=== PATIENT | female | born 1990 | race Caucasian/White ===

== ENCOUNTER 2018-11-27 17:45 | Outpatient (CLI) | payer OTHER ==
[~2018-11-27] VITALS: Ht 165.1 cm; Wt 75.9 kg
[~2018-11-27 17:45] MED LIST: FLEXERIL5 MG PO; NORCO 325 MG-51 TAB PO; VITAMINS & MIN480 M1
[2018-11-27 17:49] VITALS: BP 113/77; PULSE 66; TEMP 98
--- NOTE | 2018-11-27 17:57 | NUR ---
1757- [facility] placeed on patient at this time. Patient being seen today with c/o contractions. Patient in left wedge, semi-fowlers. 1801- 2 minute decelerations in heartrate at this time. Marlys Mccloud RN at bedside, patient turned to left lateral and then to right lateral. fht's normalized to 120's after position change. 1803- SVE- 2-3/80/-2. Patient states that she has been comtraction [id number] for the passed hour or so, rates pain a 3 out of 10.
[2018-11-27 18:15] VITALS: BP 113/77; PULSE 66; TEMP 98
[2018-11-28] MEDS ORDERED: PRENATAL MVI (07:39)
[2018-11-28] MEDS ORDERED: PROFERRIN ES12 MG PO (07:39)
== END 2018-11-27 19:22 | disposition home or self-care (01) ==
LOC: LDRO 17:45
DX: O62.9 Abnormality of forces of labor, unspecified (principal); Z3A.39 39 weeks gestation of pregnancy

== ENCOUNTER 2018-11-28 06:42 | Inpatient (IN) | payer OTHER ==
[2018-11-28] VITALS (30 sets, daily range): BP systolic 93–122; BP diastolic 53–77; PULSE 49–81; TEMP 97.5–98.4
[~2018-11-28] VITALS: Ht 165.1 cm; Wt 74.5 kg
--- NOTE | 2018-11-28 07:00 | NUR ---
Pt arrives on unit ambulatory. States contractions that have increased in pain. Denies vaginal bleeding and leaking of fluid. Reports GFM. EFM and toco applied. VSS. SVE per this RN . Pt requesting epidural. Dr. Post notified. See physician notification. Chau Ring CRNA requested to unit. Admission assessment completed. Consents signed. IV started in LH. Labs drawn. LR infusing. PT updated on POC. Safety reviewed. Bed locked in low position. Call light within reach. No questions or concerns at this time.
[2018-11-28 07:25] LABS: BASO % 0.5 % (0.0-2.0); EOS % 0.3 % (0-4.0); GRAN # 6.7 (1.4-6.5); HEMATOCRIT 40.5 % (37.0-47.0); HEMOGLOBIN 12.6 g/dl (12.5-16.0); LYMPH # 1.5 (1.2-3.4); LYMPH % 16.4 % (20.0-51.0); MEAN CELL VOLUME 102 fl (80.0-100.0); MEAN CORPUSCULAR HEMOGLOBIN 32 pg (27.0-31.0); MEAN CORPUSCULAR HGB CONC 31 g/dl (33.0-37.0); MEAN PLATELET VOLUME 10.4 fl (7.4-10.4); MONO # 0.6 (0.1-0.6); MONO % 6.9 % (1.7-9.3); PLATELET COUNT 250 K/mm3 (130-400); RED BLOOD COUNT 3.96 M/mm3 (4.10-5.30); REDCELL DISTRIBUTION WIDTH-CV 13.9 % (11.5-14.5)
[2018-11-28] MEDS ORDERED: PROFERRIN ES12 MG PO (07:39)
[2018-11-28] MEDS ORDERED: PRENATAL MVI (07:39)
--- NOTE | 2018-11-28 07:45 | NUR ---
REPORT FROM Patrick BRANNON RN AT BEDSIDE. PATIENT AMBULATED TO BATHROOM AT THIS TIME. PATIENT SITTING AT EDGE OF BED FOR EPIDURAL. PATIENT DENIES BLEEDING. LEAKING OF FLUID. PATIENT HAVING CONTRACTIONS
--- NOTE | 2018-11-28 08:14 | NUR ---
0814 EPHEDERINE 10 MG GIVEN 0824- EPHEDERINE 10 MG GIVEN
--- NOTE | 2018-11-28 12:36 | NUR ---
DR MCCONNELL IN ROOM AT 1220. 1236- VIABLE FEMAL INFANT DELIVERED BY DR ENEDINA WRIGHT. TO MOTHERS CHEST. FOB CUT CORD. PLACENTA EXPRESSED AND DELIVERED BY DR MCCONNELL AT 1240. PITOCIN STARTED AT 333 MLS HOUR. FUNDAL MASSAGE PROVIDED BY THIS NURSE. 2 DEGREE PERINEAL LACERATION REPAIRED BY DR MCCONNELL
[2018-11-29 01:00] VITALS: BP 104/56; PULSE 62
[2018-11-29 06:30] VITALS: BP 97/56; PULSE 58; TEMP 97.8
--- NOTE | 2018-11-29 06:30 | NUR ---
Rests in bed, alert. Request pain medication. Ibuprofen 600 mg. p.o. given per request and as ordered. Denies other needs at this time.
[2018-11-29 07:17] LABS: HEMATOCRIT 26.6 % (37.0-47.0)
--- NOTE | 2018-11-29 09:05 | NUR ---
Initial visit; Parents thanked for offering congratulations for the of their daughter.
--- NOTE | 2018-11-29 12:30 | NUR ---
Rests in bed, alert. Denies any needs at this time.
--- NOTE | 2018-11-29 13:45 | NUR ---
Rests in chair . Request ibuprofen. Ibuprofen 600 mg given per request and as ordered.
[2018-11-29 17:15] VITALS: BP 106/73; PULSE 69; TEMP 98.2
[2018-11-29 22:00] VITALS: BP 81/45; PULSE 62; TEMP 97.7
[2018-11-30 07:25] VITALS: BP 108/60; PULSE 61; TEMP 98.1
[2018-11-30] MEDS ORDERED: IBU600 MG PO (07:25)
[2018-11-30] MEDS ORDERED: PERCOCET 325 MG1 TA2 PO (07:25)
[2018-11-30] MEDS ORDERED: SENNA-S 50 MG-81 TAB PO (07:26)
== END 2018-11-30 14:30 | disposition home or self-care (01) | DRG 807 ==
LOC: LDRO 06:42 → LDR 07:04 → OB 07:04
PROVIDERS: Obstetrics & Gynecology; ADMIT Obstetrics & Gynecology
PROC: 10E0XZZ Delivery of Products of Conception, External Approach (ICD-10-PCS; principal; 2018-11-28)
PROC: 0KQM0ZZ Repair Perineum Muscle, Open Approach (ICD-10-PCS; 2018-11-28)
DX: O34.83 Maternal care for other abnormalities of pelvic organs, third trimester (principal); Z37.0 Single live birth; O99.62 Diseases of the digestive system complicating childbirth; K21.9 Gastro-esophageal reflux disease without esophagitis; N83.292 Other ovarian cyst, left side; Z3A.39 39 weeks gestation of pregnancy; R87.612 Low grade squamous intraepithelial lesion on cytologic smear of cervix (LGSIL); O69.81X0 Labor and delivery complicated by cord around neck, without compression, not applicable or unspecified; O70.1 Second degree perineal laceration during delivery
CPT/HCPCS: J2405; J2590; J2795; J7120

== ENCOUNTER → 2018-12-07 | Outpatient (CLI) | payer OTHER ==
[~2018-12-07] MED LIST changes: +IBU600 MG PO; +PERCOCET 325 MG1 TA2 PO; +PRENATAL MVI; +PROFERRIN ES12 MG PO; +SENNA-S 50 MG-81 TAB PO
--- NOTE | 2018-12-07 11:38 | NUR ---
Pt, Monique Dixon, presents to walk-in clinic with 9 day old baby girl, Halie Dixon for a evaluation. Pt reports she has cracked and bleeding nipples, and Halie had a weight gain of 1oz in four days. Halie was born by on [birth year] and weighed 6#8.8oz (2970 gms). Pt reports weights at the doctor's office on 12/02/18 to be 6#5oz, and on 12/06/18 to be 6#6oz. Pt used a nipple shield x24 hours over the weekend to help give nipples a break, and has RX for [employer] Nipple Cream. She states she is starting to have healing but still has soreness with . Today Halie weighs 6#8.6oz (2966 gms). Pt reports baby to have QS voids and stools. Breasts appear full at this time. Pt allows baby to latch on breast without assistance to compress areola into baby's mouth and bring baby to breast more quickly. LC removes baby from breast, demonstrates to pt how to get compressions and baby to breast more quickly. Pt states latch more comfortable, several swallows noted. Baby removed and pt able to return demonstrate better latching. After has a weight gain of 2.1oz (60 gms). POC: Breastfeed every 2-3 hours, working on latch techniques learned today. F/U: Clinic or doctor prn. Questions invited and answered.
== END ==
LOC: LAC 11:08
DX: Z39.1 Encounter for care and examination of lactating mother (principal); Z71.89 Other specified counseling

== ENCOUNTER 2020-05-23 11:58 | Emergency (ER) | payer BC ==
[~2020-05-23] VITALS: Ht 165.1 cm; Wt 65.9 kg
[2020-05-23 12:14] VITALS: TEMP 97.6
[2020-05-23 14:00] LABS: BASO % 0.3 % (0.0-2.0); EOS % 0.6 % (0-4.0); GRAN # 4.2 (1.4-6.5); GRAN % 66.5 % (42.2-75.2); HEMOGLOBIN 11.2 g/dl (12.5-16.0); LYMPH # 1.4 (1.2-3.4); LYMPH % 22.4 % (20.0-51.0); MEAN CELL VOLUME 94 fl (80.0-100.0); MEAN CORPUSCULAR HEMOGLOBIN 32 pg (27.0-31.0); MEAN CORPUSCULAR HGB CONC 34 g/dl (33.0-37.0); MEAN PLATELET VOLUME 9.3 fl (7.4-10.4); MONO # 0.6 (0.1-0.6); MONO % 9.7 % (1.7-9.3); PLATELET COUNT 284 K/mm3 (130-400); RED BLOOD COUNT 3.56 M/mm3 (4.10-5.30)
[2020-05-23 14:02] LABS: HEMATOCRIT 33.4 % (37.0-47.0)
[2020-05-23 14:08] LABS: INR 0.9 (0.8-3.0); PROTHROMBIN TIME 10.2 SECONDS (9.7-12.8)
[2020-05-23 14:11] LABS: PARTIAL THROMBOPLASTIN TIME 31.8 SECONDS (26.0-37.0)
[2020-05-23 14:33] LABS: ALANINE AMINOTRANSFERASE 21 U/L (4-34); ALBUMIN 4.3 gm/dL (3.5-5.0); ALKALINE PHOSPHATASE 57 U/L (50-136); ANION GAP 10 mmol/L (7-16); AST,SGOT 41 U/L (15-37); BILIRUBIN,TOTAL 0.5 mg/dL (0.0-1.0); BLOOD UREA NITROGEN 12 mg/dL (7-17); CALCIUM 9.6 mg/dL (8.4-10.2); CARBON DIOXIDE 24 mmol/L (22-30); CHLORIDE 103 mmol/L (98-107); CREATININE, serum 0.65 (0.52-1.25); GLUCOSE 81 mg/dL (74-106); POTASSIUM 3.6 mmol/L (3.4-5.0); SODIUM 137 mmol/L (137-145); TOTAL PROTEIN 7.9 gm/dL (6.4-8.2)
[2020-05-23 14:46] LABS: TROPONIN-I < 0.012 ng/mL (0.000-0.035)
[2020-05-23 15:19] LABS: PH 7 (5-8); SQUAMOUS EPITHELIAL 0-2 /hpf; URINE APPEARANCE Clear; URINE BACTERIA None Seen /hpf; URINE BILIRUBIN Negative (NEGATIVE); URINE BLOOD Negative (NEGATIVE); URINE COLOR Yellow; URINE GLUCOSE Negative (NEGATIVE); URINE KETONE Negative (NEGATIVE); URINE LEUKOCYTE ESTERASE Negative (NEGATIVE); URINE NITRATE Negative (NEGATIVE); URINE PROTEIN(semi-quant) Negative (NEGATIVE); URINE RBC 0-2 /hpf; URINE UROBILINOGEN Negative (NEGATIVE); URINE WBC None Seen /hpf
[2020-05-23 15:58] LABS: COLLECTION METHOD CLEAN CATCH
[2020-05-23 16:12] VITALS: BP 101/64; PULSE 66
== END 2020-05-23 15:47 | disposition home or self-care (01) ==
LOC: COL.ER 11:58
PROVIDERS: Emergency Medicine
DX: O98.512 Other viral diseases complicating pregnancy, second trimester (principal); U07.1 COVID-19; Z3A.21 21 weeks gestation of pregnancy; Z88.1 Allergy status to other antibiotic agents
CPT/HCPCS: J7120

== ENCOUNTER 2020-10-01 21:37 | Inpatient (IN) | payer BC ==
[~2020-10-01] VITALS: Ht 165.1 cm; Wt 75.0 kg
[2020-10-01] VITALS (8 sets, daily range): BP systolic 100–126; BP diastolic 57–79; PULSE 61–95; TEMP 97.9
--- NOTE | 2020-10-01 21:45 | NUR ---
2144 G2L1 39.5 WEEK GEST TO LR6 IN ACTIVE LABOR. EFM ON. SVE 8 STRETCHY TO /-2 BOW INTACT. NOT SURE IF WANTS AN EPIDURAL SINCE SO FAR ALONG 2154 DR TRAN NOTIFIED AND ON WAY TO THE HOSPITAL. 2199 IV FLUIDS STARTED IN LEFT HAND AFTER LAB OBTAINED. WANTS TO BE ON HANDS AND KNEES. ASSISTED TO THAT POSITION.
--- NOTE | 2020-10-01 22:07 | NUR ---
2207 DR ROLES HERE AND AROM WITH CLEAR FLUID. 2210 COMPLETE AND INSTRUCTED TO PUSH WITH CONTRACTIONS. ON HANDS AND KNEES PER PTS REQUEST
[2020-10-01 22:26] LABS: BASO # 0.1 (0.0-0.2); BASO % 0.4 % (0.0-2.0); EOS # 0.1 (0.0-0.7); EOS % 0.5 % (0-4.0); GRAN # 7.6 (1.4-6.5); GRAN % 67.9 % (42.2-75.2); HEMOGLOBIN 12.3 g/dl (12.5-16.0); LYMPH # 2.5 (1.2-3.4); LYMPH % 21.9 % (20.0-51.0); MEAN CELL VOLUME 91 fl (80.0-100.0); MEAN CORPUSCULAR HEMOGLOBIN 31 pg (27.0-31.0); MEAN CORPUSCULAR HGB CONC 34 g/dl (33.0-37.0); MEAN PLATELET VOLUME 10.3 fl (7.4-10.4); MONO # 0.9 (0.1-0.6); MONO % 8.3 % (1.7-9.3); PLATELET COUNT 284 K/mm3 (130-400); RED BLOOD COUNT 3.98 M/mm3 (4.10-5.30); REDCELL DISTRIBUTION WIDTH-CV 13.1 % (11.5-14.5)
[2020-10-01 22:27] LABS: HEMATOCRIT 36.3 % (37.0-47.0)
--- NOTE | 2020-10-01 22:30 | NUR ---
223 TO SEMIFOWLERS TO PUSH WITH CONTRACTIONS. READIED FOR DELIVERY 6 DELIVERY VIABLE FEMALE OVER 2ND DEGREE LAC. IV CONTS TO INFUSE.
--- NOTE | 2020-10-01 23:20 | NUR ---
2320 MOTRIN 600MG PO FOR PERINEAL DISCOMFORT
--- NOTE | 2020-10-01 23:20 | NUR ---
2320 MOTRIN 600MG PO FOR PERINEAL DISCOMFORT
[2020-10-01] MEDS ORDERED: PRENATAL TABLET PO (23:22)
[2020-10-02] VITALS (7 sets, daily range): BP systolic 96–110; BP diastolic 49–76; PULSE 57–78; TEMP 97.8–98.4
--- NOTE | 2020-10-02 00:15 | NUR ---
0015 IV INFUSED AND TO INT. UP TO BR WITH ASSIST AND VOIDED 150CC. PERICARE DONE. AMB TO 208 AND DANIEL WELL
--- NOTE | 2020-10-02 00:15 | NUR ---
0015 IV INFUSED AND TO INT. UP TO BR WITH ASSIST AND VOIDED 150CC. PERICARE DONE. AMB TO 208 AND DANIEL WELL.
[2020-10-02] MEDS ORDERED: IBU600 MG PO (07:06)
--- NOTE | 2020-10-02 09:13 | NUR ---
Initial visit; Parents thanked Electromechanical Technician for offering congratulations and God's blessings for the of their daughter. Electromechanical Technician thanked family for choosing [facility].
[2020-10-03 09:00] VITALS: BP 109/65; PULSE 62; TEMP 97.7
== END 2020-10-03 10:45 | disposition home or self-care (01) | DRG 807 ==
LOC: LDRO 21:37 → LDR 21:37 → LDRO 21:55 → LDR 21:56 → OB 10-02 00:15
PROVIDERS: ADMIT Obstetrics & Gynecology
PROC: 10E0XZZ Delivery of Products of Conception, External Approach (ICD-10-PCS; principal; 2020-10-01)
PROC: 0KQM0ZZ Repair Perineum Muscle, Open Approach (ICD-10-PCS; 2020-10-01)
PROC: 10907ZC Drainage of Amniotic Fluid, Therapeutic from Products of Conception, Via Natural or Artificial Opening (ICD-10-PCS; 2020-10-01)
DX: O70.1 Second degree perineal laceration during delivery (principal); Z37.0 Single live birth; Z3A.39 39 weeks gestation of pregnancy
CPT/HCPCS: J0690; J2405; J2590; J2765; J7120

== ENCOUNTER 2023-06-06 09:24 | Observation (INO) | payer BC ==
[2023-06-06] VITALS (14 sets, daily range): BP systolic 71–92; BP diastolic 36–59; PULSE 16–61; TEMP 98–98.3
[~2023-06-06] VITALS: Ht 165.1 cm; Wt 68.2 kg
[~2023-06-06 09:24] MED LIST changes: +PRENATAL TABLET PO
[2023-06-06 09:46] LABS: BASO # 0.1 K/mm3 (0.0-0.2); BASO % 0.9 % (0.0-2.0); EOS # 0.3 K/mm3 (0.0-0.7); EOS % 2.2 % (0.0-4.0); GRAN # 7.1 K/mm3 (1.4-6.5); GRAN % 61.3 % (42.2-75.2); HEMOGLOBIN 12.1 g/dl (12.5-16.0); LYMPH # 3.2 K/mm3 (1.2-3.4); LYMPH % 27.1 % (20.0-51.0); MEAN CELL VOLUME 92 fl (80.0-100.0); MEAN CORPUSCULAR HEMOGLOBIN 31 pg (27-31); MEAN CORPUSCULAR HGB CONC 34 g/dl (33.0-37.0); MONO % 8.2 % (1.7-9.3); PLATELET COUNT 289 K/mm3 (130-400); RED BLOOD COUNT 3.91 M/mm3 (4.10-5.30); REDCELL DISTRIBUTION WIDTH-CV 13.2 % (11.5-14.5)
[2023-06-06 10:12] LABS: ALBUMIN 4.1 gm/dL (3.5-5.0); BILIRUBIN,TOTAL 1.3 mg/dL (0.2-1.2); C-REACTIVE PROTEIN 0.21 mg/dL (0.00-0.50); CALCIUM 9.6 mg/dL (8.4-10.2); CREATININE, serum 0.83 mg/dL (0.57-1.11); POTASSIUM 3.6 mmol/L (3.5-4.5); TOTAL PROTEIN 7.3 gm/dL (6.2-8.1)
[2023-06-06 10:40] LABS: COLLECTION METHOD CLEAN CATCH
[2023-06-06 11:24] LABS: PH 8.5 (5.0-8.5); URINE APPEARANCE Turbid (CLEAR/HAZY); URINE COLOR Red (YELLOW); URINE GLUCOSE Negative (NEGATIVE); URINE KETONE Negative (NEGATIVE); URINE PROTEIN(semi-quant) 3+ (NEGATIVE); URINE UROBILINOGEN 0.2 E.U/dL (0.2-1.0)
[2023-06-06 11:25] LABS: URINE BLOOD 3+ (NEGATIVE); URINE NITRATE Negative (NEGATIVE)
[2023-06-06 11:26] LABS: URINE RBC >50 /hpf (0-2)
--- NOTE | 2023-06-06 12:45 | NUR ---
PT TRANSFERED TO OB UNIT VIA BED AFTER D&C PROCEDURE, SPOUSE SUPPORTIVE AT BEDSIDE. PT TRANSFERED DIRECTLY AFTER PROCEDURE, SO PT VS SET TO TAKE Q 5MIN FOR 30MIN, THEN Q15 FOR 1HR, Q30 FOR 1HR, AND 1 SET VS AFTER 1HR. THIS RN RECEIVED REPORT FROM ANA HERRERA AND RN FROM THE OR. PT EYES CLOSED BUT RESPONDS TO QUESTIONS, ORIENTED TO PLACE AND TIME. VS SHOW LOW BP, THIS RN INCREASED LR FLUID AND LOWERED PT HOB. PT VS STABLE AFTER AND PT REPOSITIONED COMFORTABLY, ORIENTED TO ROOM AND PLAN OF CARE.
--- NOTE | 2023-06-06 16:35 | NUR ---
PT DISCHARGED AND TRANSFERED VIA WHEEL CHAIR OFF UNIT PER THIS RN. PT VS STABLE, ALERT AND ORIENTED X3, SPOUSE SUPPORTIVE AND ATTENTIVE.
== END 2023-06-06 16:35 | disposition home or self-care (01) ==
LOC: COL.ER 09:24 → OB 12:12
PROVIDERS: Family Medicine; ADMIT Obstetrics & Gynecology
DX: O03.4 Incomplete spontaneous abortion without complication (principal)
CPT/HCPCS: J1885; J2270; J2405; J2704; J3010; J7120